=== PATIENT | female | born 1965 | race Caucasian/White ===

== ENCOUNTER 2017-08-28 08:05 | Emergency (ER) | payer OTHER ==
[~2017-08-28] VITALS: Ht 154.9 cm; Wt 60.0 kg
[~2017-08-28 08:05] MED LIST: ACET500T98 PO; IBUP-1542 PO; IBUP200C PO
[2017-08-28 08:06] VITALS: Ht 154.9 cm; Wt 60.0 kg
[2017-08-28] MEDS ORDERED: ONDANSETRON 4 MG INJ IV STA (08:30)
[2017-08-28] MEDS ORDERED: morphine 4 MG/ML VIAL IV STA (08:30)
[2017-08-28] MEDS ORDERED: OMEP20CA16 PO (09:06)
[2017-08-28 09:09] LABS: BASOPHILS % 0.6 % (0.0-2.0); EOSINOPHILS # 0.5 10^3/ul (0.0-0.5); HEMATOCRIT 43.2 % (37.0-47.0); HEMOGLOBIN 14.7 g/dl (12.0-16.0); LYMPHOCYTES # 2.7 10^3/ul (0.8-2.9); LYMPHOCYTES % 40.4 % (15.0-51.0); MEAN CORPUSCULAR HEMOGLOBIN 30.4 pg (29.0-33.0); MEAN CORPUSCULAR VOLUME 89.3 fl (82.0-101.0); MONOCYTE # 0.5 10^3/ul (0.3-0.9); MONOCYTES % 6.7 % (0.0-11.0); NEUTROPHIL # 3.1 10^3/ul (1.6-7.5); NEUTROPHILS % 45.2 % (39.0-77.0); PLATELET COUNT 202 10^3/UL (140-415); RED BLOOD COUNT 4.84 10^6/ul (4.20-5.40); RED CELL DISTRIBUTION WIDTH 12.7 % (11.5-14.5); WHITE BLOOD COUNT 6.7 10^3/ul (4.8-10.8)
[2017-08-28 09:17] LABS: ADD UMIC YES; UR ASCORBIC ACID NEGATIVE (NEGATIVE); UR BILIRUBIN (Dip) NEGATIVE (NEGATIVE); UR BLOOD (Dip) NEGATIVE (NEGATIVE); UR CLARITY CLEAR (CLEAR); UR COLOR STRAW (YELLOW); UR GLUCOSE (Dip) NEGATIVE (NEGATIVE); UR KETONES (Dip) NEGATIVE (NEGATIVE); UR LEUKOCYTE ESTERASE (Dip) TRACE Leu/ul (NEGATIVE); UR NITRITE (Dip) NEGATIVE (NEGATIVE); UR RBC 1 /HPF (0-5); UR SPECIFIC GRAVITY (Dip) 1.009 (1.003-1.030); UR TOTAL PROTEIN (Dip) NEGATIVE (NEGATIVE); UR UROBILINOGEN (Dip) NEGATIVE (NEGATIVE)
[2017-08-28 09:28] LABS: ALBUMIN 3.8 g/dl (3.3-4.9); ALBUMIN/GLOBULIN RATIO 1.02; BILIRUBIN,INDIRECT 0.4 mg/dl (0-1.1); BILIRUBIN,TOTAL 0.4 mg/dl (0.2-1.3); CALCIUM 9.3 mg/dl (8.4-10.2); CREATININE 0.66 mg/dl (0.44-1.00); POTASSIUM 3.9 mmol/L (3.5-5.1); TOTAL PROTEIN 7.5 g/dl (6.1-8.1)
--- NOTE | 2017-08-28 10:02 | ERD ---
ER Documentation Chief Complaint Date/Time DATE: 08/28/17 TIME: 10:01 Chief Complaint ap x 4 days, no n/v HPI This is a 52-year-old female complains of some diffuse abdominal pain for the past 3-4 days. She says she has no nausea vomiting or diarrhea. The pain is diffuse and crampy with no specific pattern. No fever no chest pain shortness of breath no back pain dysuria or hematuria. Pain has been moderate at most is currently mild. Denies any prior history of the same in the past. ROS All systems reviewed and are negative except as per history of present illness. Medications Home Meds Reported Medications Omeprazole* (Omeprazole*) 20 Mg Capsule.dr, 20 MG PO DAILY, #30 CAP 08/28/17 Discontinued Scripts Ibuprofen* (Ibuprofen*) 200 Mg Capsule, 200 MG PO Q6, #30 CAP 0 Refills Prov:LEYDA LYNN PA-C 12/26/15 Acetaminophen (Tylenol) 500 Mg Tab, 500 MG PO Q6, #30 TAB 0 Refills Prov:LEYDA LYNN PA-C 12/26/15 Ibuprofen* (Ibuprofen*) 600 Mg Tablet, 600 MG PO Q6, #30 TAB Prov:NAMAN CHAPMAN [employer] 04/14/15 Allergies Allergies: Coded Allergies: No Known Allergy (Unverified , 08/28/17) PMhx/Soc History of Surgery: Yes (tubal lig) Anesthesia Reaction: No Hx Neurological Disorder: No Hx Respiratory Disorders: No Hx Cardiac Disorders: No Hx Psychiatric Problems: No Hx Miscellaneous Medical Probl: No Hx Alcohol Use: No Hx Substance Use: No Hx Tobacco Use: No Smoking Status: Never smoker FmHx Family History: No coronary disease Physical Exam Vitals Vital Signs Date Time Temp Pulse Resp B/P Pulse Ox O2 Delivery O2 Flow Rate FiO2 08/28/17 10:20 98.1 78 18 149/72 99 08/28/17 08:06 97.7 82 18 154/74 99 Physical Exam Const: Well-developed, well-nourished Head: Atraumatic, normocephalic Eyes: Normal Conjunctiva, PERRLA, EOMI, normal sclera, no nystagmus ENT: Normal External Ears, Nose and Mouth, moist mucus membranes. Neck: Full range of motion. No meningismus, no lymphadenopathy. Resp: Clear to auscultation bilaterally, no wheezing, rhonchi, rales Cardio: Regular rate and rhythm, no murmurs, S1 S2 present Abd: Soft, mild diffuse tenderness mostly periumbilical non distended. Normal bowel sounds, no guarding or rebound, no pulsitile abdominal masses or bruits Skin: No petechiae or rashes, no ecchymosis , no maculopapular rash Back: No midline or flank tenderness Ext: No cyanosis, or edema, FROM x 4, normal inspection, neurovascularly intact x 4 Neur: Awake and alert, STR 5/5 x 4, sensation intact x 4, no focal findings, cerebellum intact Psych: Normal Mood and Affect Result Diagram: 08/28/17 0855 08/28/17 0855 Results 24 hrs Laboratory Tests Test 08/28/17 08:55 White Blood Count 6.710^3/ul Red Blood Count 4.8410^6/ul Hemoglobin 14.7g/dl Hematocrit 43.2% Mean Corpuscular Volume 89.3fl Mean Corpuscular Hemoglobin 30.4pg Mean Corpuscular Hemoglobin Concent 34.0g/dl Red Cell Distribution Width 12.7% Platelet Count 62866^3/UL Mean Platelet Volume 10.0fl Neutrophils % 45.2% Lymphocytes % 40.4% Monocytes % 6.7% Eosinophils % 7.0% Basophils % 0.6% Nucleated Red Blood Cells % 0.0/100WBC Neutrophils # 3.110^3/ul Lymphocytes # 2.710^3/ul Monocytes # 0.510^3/ul Eosinophils # 0.510^3/ul Basophils # 0.010^3/ul Nucleated Red Blood Cells # 0.010^3/ul Urine Color STRAW Urine Clarity CLEAR Urine pH 7.0 Urine Specific [place] 1.009 Urine Ketones NEGATIVEmg/dL Urine Nitrite NEGATIVEmg/dL Urine Bilirubin NEGATIVEmg/dL Urine Urobilinogen NEGATIVEmg/dL Urine Leukocyte Esterase TRACELeu/ul Urine Microscopic RBC 1/HPF Urine Microscopic WBC 2/HPF Urine Hemoglobin NEGATIVEmg/dL Urine Glucose NEGATIVEmg/dL Urine Total Protein NEGATIVEmg/dl Sodium Level 145mmol/L Potassium Level 3.9mmol/L Chloride Level 107mmol/L Carbon Dioxide Level 29mmol/L Anion Gap 13 Blood Urea Nitrogen 15mg/dl Creatinine 0.66mg/dl Glucose Level 100mg/dl Calcium Level 9.3mg/dl Total Bilirubin 0.4mg/dl Direct Bilirubin 0.00mg/dl Indirect Bilirubin 0.4mg/dl Aspartate Amino Transf (AST/SGOT) 32IU/L Alanine Aminotransferase (ALT/SGPT) 52IU/L Alkaline Phosphatase 106IU/L Total Protein 7.5g/dl Albumin 3.8g/dl Globulin 3.70g/dl Albumin/Globulin Ratio 1.02 Lipase 140U/L Current Medications Medications (Trade) Dose Ordered Sig/Bere Route PRN Reason Start Time Stop Time Status Last Admin Dose Admin Morphine Sulfate (morphine) 4 mg ONCE STAT IV 08/28/17 08:30 08/28/17 08:32 DC 08/28/17 08:54 Ondansetron HCl (Zofran Inj) 4 mg ONCE STAT IV 08/28/17 08:30 08/28/17 08:32 DC 08/28/17 08:54 IV Flush 10 ml 10 ml STK-MED ONCE .ROUTE 08/28/17 10:07 08/28/17 10:08 DC 08/28/17 10:24 Sodium Chloride (NS) 100 ml @ ud STK-MED ONCE .ROUTE 08/28/17 10:07 08/28/17 10:08 DC 08/28/17 10:24 Iohexol (Omnipaque 300mg/ ml) 150 ml STK-MED ONCE .ROUTE 08/28/17 10:07 08/28/17 10:08 DC 08/28/17 10:25 Procedures/MDM PROCEDURE: CT ABDOMEN AND PELVIS WITH IV CONTRAST. CLINICAL INDICATION: Mid abdominal pain TECHNIQUE: CT scan of the abdomen and pelvis without contrast was performed on a multidetector high-resolution CT scanner following the use of IV contrast. 100 cc Omnipaque-300 was administered. Coronal and sagittal reformatted images were obtained from the axial source images. Images were reviewed on a high- resolution PACS workstation. The total exam CTDI equals 11.2 mGy and the total exam DLP equals 634 mGy-cm. One or more of the following dose reduction techniques were used: Automated exposure control. Adjustment of the mA and/or kV according to patient size. Use of iterative reconstruction technique. COMPARISON: None FINDINGS: CT abdomen: The lung bases are clear. The heart size is within limits. There is no significant pericardial effusion. Hepatic morphology is within limits. No gross masses or lesions. Gallbladder is unremarkable. No intrahepatic or extrahepatic biliary dilatation. The spleen and pancreas are within normal limits. Both adrenal glands are within normal limits. Both kidneys are in normal anatomic position. No evidence of obstruction or hydronephrosis. No gross renal/ureteric calculi. The visualized GI tract demonstrate normal caliber loops of small and large bowel. No evidence of bowel obstruction. The appendix is within normal limits. The stomach is collapsed. The aorta is unremarkable. There is no significant retroperitoneal lymphadenopathy. CT pelvis: The bladder is within normal limits. The uterus is unremarkable. No evidence of free fluid. No significant pelvic lymphadenopathy. The uterus is unremarkable. The visualized osseous structures appear to be within normal limits. IMPRESSION: 1. No evidence of acute intra-abdominal/pelvic inflammatory process. No evidence of bowel obstruction. The appendix within normal limits. No gross CT evidence of pancreatitis. 2. No evidence of free fluid or free air. No gross focal fluid collections. If there is concern for gallstones, ultrasound would be more sensitive. 3. Otherwise, unremarkable CT scan of the abdomen/pelvis. RPTAT: AAPP Physician Brandon Date Time Electronically viewed and signed by Physician Brandon on 08/28/2017 10:47 JL/ CC: JANELLE HEDRICK DO No intra-abdominal pathology. Patient tells me now that she has got diarrhea and failed to mention that and that she originally told me know but she is having some slight diarrhea. This may be some type of viral pathology or foodborne illness treat accordingly Departure Diagnosis: Primary Impression: Abdominal pain Abdominal location: generalized Qualified Code: R10.84 - Generalized abdominal pain Condition: Stable JANELLE HEDRICK DO Aug 28, 2017 10:02
[2017-08-28] MEDS ORDERED: IOHEXOL 300MG/ML 150 ML BTL ONE (10:07)
[2017-08-28] MEDS ORDERED: SOD CHLORIDE 0.9% 100 ML ONE (10:07)
[2017-08-28 10:20] VITALS: BP 149/72; PULSE 78; RESP 18; TEMP 98.1
--- NOTE | 2017-08-28 10:48 | RADRPT ---
PROCEDURE: CT ABDOMEN AND PELVIS WITH IV CONTRAST. CLINICAL INDICATION: Mid abdominal pain TECHNIQUE: CT scan of the abdomen and pelvis without contrast was performed on a multidetector hig h-resolution CT scanner following the use of IV contrast. 100 cc Omnipaque-300 was administered. Cor onal and sagittal reformatted images were obtained from the axial source images. Images were reviewe d on a high-resolution PACS workstation. The total exam CTDI equals 11.2 mGy and the total exam DLP equals 634 mGy-cm. One or more of the following dose reduction techniques were used: Automated exposure control. Adjustment of the mA and/or kV according to patient size. Use of iterative reconstruction technique. COMPARISON: None FINDINGS: CT abdomen: The lung bases are clear. The heart size is within limits. There is no significant pericardial effus ion. Hepatic morphology is within limits. No gross masses or lesions. Gallbladder is unremarkable. No int rahepatic or extrahepatic biliary dilatation. The spleen and pancreas are within normal limits. Both adrenal glands are within normal limits. Both kidneys are in normal anatomic position. No evidence of obstruction or hydronephrosis. No gross renal/ureteric calculi. The visualized GI tract demonstrate normal caliber loops of small and large bowel. No evidence of nicole wel obstruction. The appendix is within normal limits. The stomach is collapsed. The aorta is unremarkable. There is no significant retroperitoneal lymphadenopathy. CT pelvis: The bladder is within normal limits. The uterus is unremarkable. No evidence of free fluid. No signi ficant pelvic lymphadenopathy. The uterus is unremarkable. The visualized osseous structures appear to be within normal limits. IMPRESSION: 1. No evidence of acute intra-abdominal/pelvic inflammatory process. No evidence of bowel obstructio n. The appendix within normal limits. No gross CT evidence of pancreatitis. 2. No evidence of free fluid or free air. No gross focal fluid collections. If there is concern for gallstones, ultrasound would be more sensitive. 3. Otherwise, unremarkable CT scan of the abdomen/pelvis. RPTAT: AAPP Physician Brandon Date Time Electronically viewed and signed by Physician Brandon on 08/28/2017 10:47 JL/
[2017-08-28] MEDS ORDERED: CIPR500T4 PO (11:51)
[2017-08-28] MEDS ORDERED: TRAM50TA2 PO (11:51)
== END 2017-08-28 12:06 | disposition home or self-care (01) ==
LOC: E/R 08:05
DX: R10.84 Generalized abdominal pain (principal)
CPT/HCPCS: 36415; 74177; 80053; 81001; 83690; 85025; 96374; 96375; J2270; J2405; Q9967; Z7502; Z7610